=== PATIENT | male | born 1985 | race Caucasian/White ===

== ENCOUNTER 2019-10-24 21:05 | Emergency (ER) | payer OTHER ==
[2019-10-24 21:15] VITALS: BP 127/73; PULSE 66; TEMP 98.3; BMI 27.1
[2019-10-24] MEDS ORDERED: SODIUM CHLORIDE 0.9% 1000 ML INFUS.BAG IV ONE (22:11)
--- NOTE | 2019-10-24 22:11 | PDOC ---
Documentation entered by Michael Roman SCRIBE, acting as scribe for Steffanie Orozco DO. Steffanie Orozco DO: This documentation has been prepared by the Abel cash Daniel, SCRIBE, under my direction and personally reviewed by me in its entirety. I confirm that the documentation accurately reflects all work, treatment, procedures, and medical decision making performed by me. History of Present Illness - General Chief Complaint: Pain Stated Complaint: ABDOMINAL PAIN Time Seen by Provider: 10/24/19 21:42 History Source: Patient Exam Limitations: No Limitations - History of Present Illness Initial Comments: 10/24/19 22:01 The patient is a 34 year old male with no past medical history here today for evaluation of abdominal pain. The patient reports that he has had a few days of lower abdominal pain that worsened today. He notes that his pain is worse with sitting, noticed some bloating, and noticed cramps after eating today. He reports having a normal bowel movement yesterday and is able to pass gas normally. Patient denies headache, lightheadedness. Denies fever, chills. Denies chest pain, shortness of breath. Denies nausea, vomiting, diarrhea. Allergies: NKA Social history: Confirms occasional marijuana use. PCP: Demarcus Butler Past History - Past Medical History Allergies/Adverse Reactions: Allergies Allergy/AdvReac Type Severity Reaction Status Date / Time No Known Allergies Allergy Verified 10/24/19 21:15 Home Medications: Ambulatory Orders NK [No Known Home Medication] 10/24/19 COPD: No - Psycho Social/Smoking Cessation Hx Smoking Status: Yes Smoking History: Never smoked Have you smoked in the past 12 months: No Number of Cigarettes Smoked Daily: 0 Cigars Per Day: 1 Information on smoking cessation initiated: No Hx Alcohol Use: No Drug/Substance Use Hx: No Substance Use Type: Alcohol, Marijuana Review of Systems - Review of Systems Able to Perform ROS?: Yes Comments:: 10/24/19 22:01 GENERAL/CONSTITUTIONAL: No fever or chills. No weakness. HEAD, EYES, EARS, NOSE AND THROAT: No change in vision. No ear pain or discharge. No sore throat. GASTROINTESTINAL: +lower abdominal pain. No nausea, vomiting, diarrhea or constipation. GENITOURINARY: No dysuria, frequency, or change in urination. CARDIOVASCULAR: No chest pain or shortness of breath. RESPIRATORY: No cough, wheezing, or hemoptysis. MUSCULOSKELETAL: No joint or muscle swelling or pain. No neck or back pain. SKIN: No rash NEUROLOGIC: No headache, vertigo, loss of consciousness, or change in strength/ sensation. ENDOCRINE: No increased thirst. No abnormal weight change. HEMATOLOGIC/LYMPHATIC: No anemia, easy bleeding, or history of blood clots. ALLERGIC/IMMUNOLOGIC: No hives or skin allergy. *Physical Exam - Vital Signs Last Vital Signs Temp Pulse Resp BP Pulse Ox 98.3 F 66 18 127/73 100 10/24/19 21:11 10/24/19 21:11 10/24/19 21:11 10/24/19 21:11 10/24/19 21:11 - Physical Exam 10/24/19 22:02 Constitutional: Awake, alert, oriented. No acute distress. Head: Normocephalic. Atraumatic Eyes: PERRL. EOMI. Conjunctivae are not pale. ENT: Mucous membranes are moist and intact. Posterior pharynx without exudates or erythema. Uvula midline. Neck: Supple. Full ROM. No lymphadenopathy. Cardiovascular: Regular rate. Regular rhythm. S1, S2 regular. Distal pulses are 2+ and symmetric. Pulmonary/Chest: No evidence of respiratory distress. Clear to auscultation bilaterally No wheezing, rales or rhonchi. Abdominal: +left lower quadrant tenderness to palpation. Soft and non- distended. No rebound, guarding or rigidity. No organomegaly. No palpable masses. Good bowel sounds. Back: No CVA tenderness. Musculoskeletal: No edema. No cyanosis. No clubbing. Full range of motion in all extremities. No calf tenderness. Radial/pedal pulses are intact and 2+ bilaterally Skin: Skin is warm and dry. No petechiae. No purpura. Neurological: Alert and oriented to person, place, and time. Cranial nerves II -XII are grossly intact. Normal speech. Strength is grossly symmetric. No sensory deficits. Psychiatric: Good eye contact. Normal interaction, affect and behavior. ED Treatment Course - LABORATORY CBC & Chemistry Diagram: 10/24/19 22:00 10/24/19 22:00 - RADIOLOGY Radiology Studies Ordered: Category Date Time Status ABDOMEN & PELVIS CT WITH CONTR [CT] Stat CT Scan 10/24/19 21:59 Ordered Medical Decision Making - Medical Decision Making 10/24/19 22:08 a/p: 34yo male with no pmhx with LLQ abd pain x a few days -no assoc n/v/d, but pt with LLQ abd pain -pt denies constipation -pt with LLQ abd ttp -will send labs, concern for colitis vs diverticulitis -will send for ct abd/pelvis -will monitor and reassess 10/24/19 23:37 no elevated wbc labs reviewed without acute findings pending ua, ct 10/25/19 00:22 CT abdomen pelvis: No bowel obstruction or inflammation. No diverticulosis colon. No free fluid or free air. Normal appendix. Unremarkable spleen, stomach, pancreas, kidneys and gallbladder. Tiny hepatic cysts or hemangiomas. Surgical changes proximal left humerus. 10/25/19 01:31 pt states feeling better ua pending discussed ct findings 10/25/19 02:09 discussed ua results with the lab- spec grav 1.07 10/25/19 02:12 pt stable for dc to home Discharge - Discharge Information Problems reviewed: Yes Clinical Impression/Diagnosis: Left lower quadrant abdominal pain Condition: Stable Disposition: HOME - Admission No - Follow up/Referral Referrals: Demarcus Butler RES [Primary Care Provider] - - Patient Discharge Instructions Patient Printed Discharge Instructions: DI for Abdominal Pain-Adult Additional Instructions: Please take tylenol or motrin as needed for pain. Please call your pmd to schedule a follow up appointment. Please return to the ED with any further concerns or complaints. - Post Discharge Activity
[2019-10-24 22:39] LABS: BASO % 0.9 % (0-2.0); EOS % 1.6 % (0-4.5); HEMATOCRIT 41.9 % (35.4-49); HEMOGLOBIN 14.4 GM/dL (11.7-16.9); LYMPH % 36.8 % (8-40); MCH 31.1 pg (25.7-33.7); MCHC 34.3 g/dl (32.0-35.9); MEAN CELL VOLUME 90.6 fl (80-96); MEAN PLT VOLUME 7.6 fl (7.5-11.1); MONO % 8.6 % (3.8-10.2); NEUT % 52.1 % (42.8-82.8); PLATELET COUNT 323 K/MM3 (134-434); RBC 4.63 M/mm3 (4.00-5.60); RDW 12.1 % (11.9-15.9); WHITE BLOOD COUNT 8.1 K/mm3 (4.0-10.0)
[2019-10-24 23:14] LABS: BILIRUBIN,TOTAL 0.3 mg/dL (0.2-1); BLOOD UREA NITROGEN 17.4 mg/dL (7-18); CALCIUM 8.8 mg/dL (8.5-10.1); CREATININE 0.9 mg/dL (0.55-1.3); TOT PROT 7.3 g/dl (6.4-8.2)
[2019-10-25 02:06] LABS: PH,URINE 5.5 (5.0-8.0); URINE APPEARANCE CLEAR; URINE BILIRUBIN NEGATIVE (NEGATIVE); URINE COLOR YELLOW; URINE GLUCOSE (UA) NEGATIVE (NEGATIVE); URINE KETONE NEGATIVE (NEGATIVE); URINE PROTEIN NEGATIVE (NEGATIVE)
[2019-10-25 02:07] LABS: URINE LEUK ESTERASE NEGATIVE (NEGATIVE); URINE NITRITE NEGATIVE (NEGATIVE); URINE UROBILINOGEN 0.2 mg/dL (0.2-1.0)
== END 2019-10-25 02:26 | disposition home or self-care (01) ==
LOC: JER 21:05
DX: R10.32 Left lower quadrant pain (principal)
CPT/HCPCS: 36415; 74177-TC; 80053; 81003; 85025; 99282-25; J7030; Q9967